=== PATIENT | male | born 1965 | race African-American/Black ===

== ENCOUNTER 2020-01-21 21:08 | Inpatient (IN) | payer MEDICARE ==
[2020-01-21] MEDS ORDERED: niCARdipine 25 MG in Sodium Chloride 0.9% 250 ML 240 ML IVPB SCH ×2 (21:45→23:03)
[2020-01-21] MEDS ORDERED: ADMIXTURE FEE IV SCH (22:00)
[2020-01-21] MEDS ORDERED: HUMAN PROTHROMBIN COMPLX IV SCH (22:00)
[2020-01-21 22:33] LABS: Troponin I 0.019 ng/mL (< 0.028)
--- NOTE | 2020-01-21 22:51 | PDOC.HHP ---
Hospitalist HPI - History of Present Illness generalized weakness History of Present Illness: This is a 54 year old male with past medical history of CVA x 3, hypertension, CHF with EF 15%, thrombosis of unclear site per patient (lung, heart or brain? ) on warfarin who presented to the ER with generalized weakness. Patient first felt weak at 4:00 pm yesterday. He states he was sitting on the couch and was getting up to perform a chore and realized he couldn't get up from the couch. He also noticed that his right arm was numb. He checked his blood pressure and it was 160/100, so he took his coreg and hydralazine and when he rechecked it, it was over 200 systolic. It continued to fluctuate throughout the night but eventually improved to 140 systolic at 5 am so he decided to go to sleep. He woke up at 4:00 pm today and was still unable to get up off the couch and his right arm was still tingling so he called the ambulance. He also noticed his legs felt extremely heavy. When the ambulance checked his blood pressure it was 200 systolic again. He took his coumadin before coming to the ER. The patient denies headache, vision changes, hearing loss, chest pain, palpitations, shortness of breath, diaphoresis, dizziness. Patient states he moved here from [place] in August and has no linoleum layer here yet. Last INR check with PCP in October was 2.1. Patient states goal INR is 2.1 to 2.5. He is supposed to get INR machine at home but insurance company hasn't sent it yet. ED Course: The patient presented to [facility] with a BP of 213/145. He was noted to have an INR of 3.4, creatinine of 1.66. CT head showed acute hemorrhage in the basal ganglia measuring 1.5 cm. He was given 10 mg subcutaneous vitamin K and transferred to the ER here. Upon arrival to the ER neurosurgery was consulted who recommended no intervention. The patient was started on a nicardipine drip with BP improved to 160 systolic. Hospitalist ROS - Review of Systems Constitutional: denies: fever, chills Eyes: denies: vision change ENT: denies: ear pain, ear discharge, mouth pain Respiratory: denies: cough, dry, shortness of breath Cardiovascular: denies: chest pain, palpitations, orthopnea Gastrointestinal: denies: nausea, vomiting, abdominal pain, diarrhea Musculoskeletal: reports: other (generalized weakness) Other: legs feel heavy. Some tingling on right - Medication Medications: Warfarin 12 mg ,, Warfarin 9 mg , , Wednesday, Wednesday Coreg 12.5 mg bid Lasix 20 mg daily Calcium Magnesium 400 mg daily Hydralazine 50 mg tid Vitamin B1 Hospitalist History - Past Medical History Cardiac: reports: CHF (EF 15-20%), HTN PRACTICE PROFESSIONAL: reports: CVA (x 3 in the past. Patient was paralyzed for two weeks in the past from stroke) Infectious Disease: reports: Other (was hospitalized for flu and pneumonia last year) Other Medical History: Patient reports being in coumadin for clot in heart, lung or brain but not sure which one CKD not sure what stage - Past Surgical History Other Surgical History: Right knee repair as a child - Family History Other Family History: Dad had a stroke Mom had a stroke and heart attack - Social History Smoking Status: Current every day smoker (has weaned down to 1/2 pack a day. Smoked for last 40 years) Alcohol: reports: Occassional (Previously heavy drinker up until a year ago) Drugs: reports: none Living Situation: Other (lives with girlfriend) Occupation: used to work as a plant security guard. Currently retired - Exam General Appearance: NAD, awake alert Eye: PERRL, anicteric sclera ENT: normocephalic atraumatic, no oropharyngeal lesions Neck: no JVD Heart: RRR, no murmur, no gallops, no rubs Respiratory: CTAB, no wheezes, no rales, no ronchi Gastrointestinal: non-tender, non-distended, normal bowel sounds Gastrointestinal - other findings: firm abdomen likely from musculature Extremities: no cyanosis, no clubbing, no edema Skin: normal turgor, no lesions Neurological: cranial nerve grossly intact, normal sensation to touch. negative : speech deficit, vision deficit Neurological - other findings: RUE pronator drift. Cannot keep right leg bent. Refl 1+ throughout. Neg Bab Musculoskeletal: normal tone, normal strength, no muscle wasting Musculoskeletal - other findings: Arm ext: LUE 4/5, RUE 5/5, Arm flexion: RUE 4 /5, LUE 5/5. Psychiatric: normal affect, normal behavior, A&O x 3, oriented to person Hospitalist Results - Labs Lab results: Troponin I 0.019 ng/mL (< 0.028) 01/21/20 21:56 - EKG Interpretation EKG: T wave inversions in V5 and V6, lead I and II, repolarization abnormality Hospitalist H&P A/P - Plan Plan: CT head: acute hemorrhage left basal ganglia measuring 1.5 cm. Severely chronic ischemic white matter change This is a 54 year old male with hypertension, systolic CHF, CKD, presenting with acute basal ganglia hemorrhage #Acute basal ganglia hemorrhage from warfarin #Hypertensive emergency - CT head shows acute hemorrhage left basal ganglia. He has right pronator drift and RLE weakness. LUE weak on extension - INR 3.4, s/p 10 mg subcutaneous vitamin K. Will order K-centra, repeat INR in 30 minutes - neurosurgery consulted - neurology consult will be placed as well - will keep SBP around 140 with nicardipine drip. Continue hydralazine 50 mg tid, coreg 12.5 mg bid. -PT/OT consult #Systolic CHF with EF 15% - pt reports not being on aspirin or plavix, denies history of stents - obtain cardiology records from [place] -he says he did not tolerate life vest in the past #CKD - unknown baseline, currently 1.6 - obtain last creatinine from PCP #Hyperglycemia - mildly elevated 108, will check A1C #Leukopenia - WBC 4.3, will monitor. No signs of infection currently GI prophylaxis: will add protonix DVT prophylaxis: none Code status: DNR/DNI
[2020-01-21 23:08] LABS: INR-International Normal Ratio 3.2; Prothrombin Time 32.6 SEC (12.0-14.7)
[2020-01-21] MEDS ORDERED: Carvedilol 6.25 MG TAB PO SCH (23:15)
[2020-01-21] MEDS ORDERED: hydrALAZINE 25 MG TAB PO SCH (23:15)
[2020-01-21] MEDS ORDERED: Acetaminophen 325 MG TAB PO PRN (23:18)
[2020-01-21] MEDS ORDERED: Ondansetron ODT 4 MG TAB SL PRN (23:18)
[2020-01-21] MEDS ORDERED: Ondansetron PF 4 MG/2 ML Vial IVP PRN (23:18)
[2020-01-21] MEDS ORDERED: Sodium Chloride 0.9% (PF) 10 ML VIAL FS PRN (23:33)
[2020-01-21] MEDS ORDERED: Pantoprazole 40 MG VIAL IVP SCH (23:45)
[2020-01-22] MEDS ORDERED: Nicotine 14 MG PATCH TD SCH (01:00)
[2020-01-22 01:17] LABS: Hemoglobin 16.6 g/dL (14.0-18.0); Mean Corpuscular HGB CONC 33.5 g/dL (32.0-36.0); Mean Corpuscular Hemoglobin 28.7 pg (27.0-31.0); Mean Corpuscular Volume 85.7 fL (78.0-98.0); Mean Platelet Volume 7.6 fL (7.4-10.4); Platelet Count 196 thou/uL (130-400); RBC Distribution Width 12.7 % (11.5-14.5); Red Blood Cell (RBC) Count 5.79 mill/uL (4.70-6.10); White Blood Cell (WBC) Count 6.2 thou/uL (4.8-10.8)
[2020-01-22 01:35] LABS: Troponin I 0.019 ng/mL (< 0.028)
[2020-01-22 01:42] LABS: Anion Gap 14 mmol/L (10-20); BUN (Urea Nitrogen) 14 mg/dL (8.4-25.7); Calc. Creatinine Clearance 0 mL/min (70-130); Calcium 9.1 mg/dL (7.8-10.44); Carbon Dioxide 21 mmol/L (22-29); Chloride 106 mmol/L (98-107); Estimated GFR-MDRD 55; Glucose 135 mg/dL (70-105); Potassium 3.4 mmol/L (3.5-5.1); Sodium 138 mmol/L (136-145)
[2020-01-22] MEDS: Thiamine 100 MG TAB PO SCH (08:00)
[2020-01-22] MEDS: hydrALAZINE 25 MG TAB PO SCH ×3 (08:00→21:17)
[2020-01-22] MEDS: Carvedilol 6.25 MG TAB PO SCH ×2 (08:01→16:11)
--- NOTE | 2020-01-22 08:58 | CON ---
DATE OF CONSULTATION: 01/22/2020 REASON FOR CONSULTATION: Intracranial bleed. HISTORY OF PRESENT ILLNESS: This is a 54-year-old male, who presented to the hospital last night, unsteady on his feet. He was found to have a left small basal ganglia hemorrhage measuring about 1.5 cm. At the current time, he does not have much in the way of deficits. He is currently on a nicardipine drip for blood pressure [id number]. Should be noted that he was on warfarin prior to this admission. I am not completely sure why he had been on warfarin. He has just moved his care here from [place]. PAST MEDICAL HISTORY: 1. Cardiomyopathy with EF 15% to 20%. 2. Hypertension. 3. Stroke. 4. Pneumonia. PAST SURGICAL HISTORY: Right knee repair. MEDICATIONS: Prior to admission: 1. Warfarin 12 mg every Wednesday, Wednesday, Wednesday and 9 mg every Wednesday, , Wednesday, and Wednesday. 2. Coreg 12.5 mg b.i.d. 3. Lasix 20 mg daily. 4. Calcium. 5. Magnesium 4 mg daily. 6. Hydralazine 50 mg b.i.d. 7. Vitamin B1. FAMILY MEDICAL HISTORY: Stroke. SOCIAL HISTORY: Smokes half pack per day and does so for 40 years. Does not currently drink alcohol, but previously did in the past. Does not use illicit drugs. REVIEW OF SYSTEMS: Twelve-point review of systems is otherwise negative. PHYSICAL EXAMINATION: VITAL SIGNS: Temperature 98.4, pulse 80, blood pressure 150/95, and O2 saturation 100%. HEENT: Pupils react. Sclerae are anicteric. Oropharynx clear. Tongue protrudes midline. NECK: No adenopathy, JVD, or bruits. LUNGS: Clear without wheezing or rhonchi. CARDIAC: S1 and S2. Regular without audible murmur, rub, or gallop. ABDOMEN: Soft and nontender to palpation. EXTREMITIES: No clubbing, cyanosis, or edema. NEUROLOGIC: Muscle strength 5/5 throughout with the exception of the extensor muscle in the left hip, which is 4/5. He has sensation fully intact throughout. Deep tendon reflexes intact throughout. Chest x-ray shows some cardiomegaly without mass, effusion, or infiltrate. LABORATORY DATA: White blood cell count 6.2, hematocrit 49.6, and platelet count 196. INR was 3.2. Sodium 138, potassium 3.4, chloride 106, CO2 of 21, BUN 14, creatinine 1.5, and glucose 135. ASSESSMENT: 1. Basal ganglia bleed. 2. Malignant hypertension. 3. Cardiomyopathy. PLAN: 1. The patient was given Kcentra in the emergency room to reverse his warfarin. 2. Blood pressure well controlled with the Cardene drip. 3. Neurosurgical evaluation. I would assume there will probably not need to intervene unless the hemorrhage increases in size. We will follow with you. Job ID: [id number]
[2020-01-22] MEDS ORDERED: Pantoprazole 40 MG VIAL IVP SCH (09:00)
[2020-01-22] MEDS ORDERED: Prevnar 13-Val Conj/PF 0.5 ML SYRINGE IM ONE (09:00)
--- NOTE | 2020-01-22 09:21 | RAD ---
PORTABLE CHEST 1 VIEW: Date: 01/21/2020 HISTORY: Generalized weakness, right arm numbness. FINDINGS: The heart size is normal. The lungs are well expanded without lobar consolidation, pneumothoraces, or pleural effusions. IMPRESSION: No acute process. POS: [facility]
--- NOTE | 2020-01-22 10:44 | CON ---
DATE OF CONSULTATION: 01/22/2020 Mr. Solis is a 54-year-old man, admitted to [facility] after suffering a left-sided basal ganglia hemorrhage measuring roughly 1 cm in size with surrounding rim of hypointensity, likely related to early signs of edema from the blood products that had been present for over 4 hours. At bedside, the patient states that his symptoms onset around 48 hours ago, but one of the way today before being evaluated to see if they would resolve as he has history of TIA. He also has history positive for CVA x3 and was started on warfarin therapy for this, which he is continued to be on. His INR upon presentation was 3.4. He states that he has no home way of checking his INR on a weekly basis like it should be and unable to check this level since October when he moved to [place] from [place]. Reportedly, he states his primary care physician has arranged for him to have a home point of care testing unit and be able to check his warfarin levels on his own, but it is unfortunately not yet arrived. He also has history positive for hypertension and takes medications daily for that. However, upon presentation, he was quite hypertensive at that time. This is better controlled today with pressures in the 130s to 150s, although they continue to rise up to 170s and 180s. He is on a Cardene drip for this purpose, but not on any other p.r.n. medications and is in the ICU for that reason. Neurologically, he looks fantastic. He has no cognitive deficiencies. Speech is fluid and uninhibited. He does have some mild right lower extremity weakness, which is new, likely related to these areas of hemorrhage. Otherwise, I think he is quite well overall. Recommendation for his hemorrhage is that of nonsurgical management. This will just need a repeat CT scan today at some point to ensure the hemorrhage is not enlarging or changing morphologically. If stable, the patient can be discharged from Neurosurgery's perspective at this point in time. Plan to follow up with him in say 2 to 3 weeks with repeat head CT in [place] since he is on warfarin. We will hold that for the time being and if things look to be well in the next couple of weeks, we can start a plan to restart that. Job ID: [id number]
[2020-01-22] MEDS ORDERED: Labetalol HCl 100 MG/20 ML VIAL ONE ×2 (10:51→10:52)
[2020-01-22] MEDS: Labetalol HCl 100 MG/20 ML VIAL SLOW IVP PRN (12:15)
--- NOTE | 2020-01-22 12:46 | PDOC.HOSPP ---
- Subjective Encounter Date: 01/22/20 Encounter Time: 11:45 Subjective: awake, moves all extremities but weaker on right side says he is amphidextrous - Objective Vital Signs & Weight: Vital Signs (12 hours) Temp Pulse BP Pulse Ox 01/22/20 12:16 179/115 H 01/22/20 12:15 78 179/115 H 01/22/20 11:00 97.8 F 01/22/20 08:01 179/115 H 01/22/20 08:00 179/115 H 100 01/22/20 07:00 98.4 F 01/22/20 04:00 98.1 F Weight Weight 180 lb 12.8 oz Most Recent Monitor Data Heart Rate from ECG 70 NIBP 145/107 NIBP BP-Mean 119 Respiration from ECG 20 SpO2 98 I&O: 01/21/20 01/22/20 01/23/20 06:59 06:59 06:59 Intake Total 716 500 Output Total 250 600 Balance 466 -100 Result Diagrams: 01/22/20 01:02 01/22/20 01:02 Hospitalist ROS - Medication Medications: Active Medications Generic Name Dose Route Start Last Admin Trade Name Freq PRN Reason Stop Dose Admin Carvedilol 12.5 mg 01/22/20 08:00 01/22/20 08:01 Coreg PO 12.5 mg BID-WM STU Administration Hydralazine HCl 50 mg 01/22/20 09:00 01/22/20 08:00 Apresoline PO 50 mg TID STU Administration Labetalol HCl 10 mg 01/22/20 10:52 01/22/20 12:15 Normodyne SLOW IVP 10 mg Q4H PRN Administration SBP GREATER THAN 160 Nicotine 14 mg 01/22/20 01:00 01/22/20 00:41 Nicoderm Patch TD 14 mg 0100 STU Administration Pantoprazole Sodium 40 mg 01/22/20 09:00 01/22/20 08:22 Protonix IVP 40 mg Q12HR STU Administration Sodium Chloride 10 ml 01/21/20 23:33 01/21/20 23:57 Normal Saline Pf FS 10 ml PRN PRN Administration RECONSTITUTION Thiamine HCl 100 mg 01/22/20 09:00 01/22/20 08:00 Thiamine PO 100 mg DAILY STU Administration - Exam General Appearance: awake alert Eye: PERRL, anicteric sclera ENT: no oropharyngeal lesions, moist mucosa Neck: supple, no JVD Heart: RRR, no murmur Respiratory: no wheezes, no rales Gastrointestinal: soft, non-tender, non-distended, normal bowel sounds Extremities: no cyanosis, no edema Neurological: hemiplegia Psychiatric: A&O x 3 Hosp A/P (1) Intracerebral bleed Code(s): I61.9 - NONTRAUMATIC INTRACEREBRAL HEMORRHAGE, UNSPECIFIED Status: Acute Qualifiers: Intracerebral hemorrhage etiology: nontraumatic Cerebral hemorrhage location: cerebral hemisphere, subcortical portion Laterality: left Qualified Code(s): I61.0 - Nontraumatic intracerebral hemorrhage in hemisphere, subcortical (2) Hypertensive emergency Code(s): I16.1 - HYPERTENSIVE EMERGENCY Status: Resolved (3) H/O: CVA (cerebrovascular accident) Code(s): Z86.73 - PRSNL HX OF TIA (TIA), AND CEREB INFRC W/O RESID DEFICITS Status: Chronic (4) CHF (congestive heart failure) Code(s): I50.9 - HEART FAILURE, UNSPECIFIED Status: Chronic Qualifiers: Heart failure type: systolic Heart failure chronicity: chronic Qualified Code(s): I50.22 - Chronic systolic (congestive) heart failure (5) Dyslipidemia Code(s): E78.5 - HYPERLIPIDEMIA, UNSPECIFIED Status: Chronic - Plan hypertensive emergency has resolved has right hemiparesis with strength of around 3/5 in both upper and lower h/o cva 7yrs back with left hemiplegia and no residual now has known h/o chf with ef of 15%, also is on coumadin for ?thrombus await records from [facility]/PCP current echo, february tx to stroke unit PT/OT eval dc cardene drip he got vit k 10mg and kcentra to reverse coumadin in view of presenting symptoms hemo/neurostable will need rehab for dc plan continue coreg, hydralazine, lipitor
--- NOTE | 2020-01-22 13:06 | CT ---
BRAIN CT WITHOUT IV CONTRAST: Date: 01/22/2020 HISTORY: Coordination issues, follow-up intracranial hemorrhage. Patient on warfarin COMPARISON: 01/21/2020. FINDINGS: Stable intraparenchymal hemorrhage in the left basal ganglia. Bilateral atrophy and chronic white mat ter ischemic changes, including the periventricular regions bilaterally. No mass or midline shift. No new hemorrhage. IMPRESSION: Stable left basal ganglia intraparenchymal hemorrhage with atrophy and chronic white matter ischemic change. No new hemorrhage. POS: [facility]
[2020-01-22] MEDS: Nicotine 14 MG PATCH TD SCH (21:17)
[2020-01-22] MEDS: Atorvastatin Calcium 40 MG TAB PO SCH (21:17)
[2020-01-23] MEDS: Acetaminophen 325 MG TAB PO PRN (04:03)
[2020-01-23] MEDS: Labetalol HCl 100 MG/20 ML VIAL SLOW IVP PRN ×4 (04:21→22:28)
[2020-01-23 05:14] LABS: #Basophils 0.1 thou/uL (0.0-0.2); #Eosinphils 0.1 thou/uL (0.0-0.7); #Lymphocytes 2.5 thou/uL (1.20-3.40); #Monocytes 0.5 thou/uL (0.11-0.59); #Neutrophils 3.1 thou/uL (1.40-6.50); %Basophils 1.1 % (0.0-1.0); %Eosinophils 1.5 % (0.0-10.0); %Lymphocytes 39.9 % (21.0-51.0); %Neutrophils 49.6 % (42.0-75.0); Hemoglobin 15.4 g/dL (14.0-18.0); Mean Corpuscular HGB CONC 33.3 g/dL (32.0-36.0); Mean Corpuscular Hemoglobin 28.5 pg (27.0-31.0); Mean Corpuscular Volume 85.8 fL (78.0-98.0); Mean Platelet Volume 7.9 fL (7.4-10.4); Platelet Count 201 thou/uL (130-400); RBC Distribution Width 12.7 % (11.5-14.5); Red Blood Cell (RBC) Count 5.41 mill/uL (4.70-6.10); White Blood Cell (WBC) Count 6.3 thou/uL (4.8-10.8)
[2020-01-23 05:22] LABS: INR-International Normal Ratio 1.2; PTT 31.5 SEC (22.9-36.1)
[2020-01-23 05:34] LABS: Anion Gap 11 mmol/L (10-20); BUN (Urea Nitrogen) 16 mg/dL (8.4-25.7); Calc. Creatinine Clearance 61 mL/min (70-130); Calcium 8.8 mg/dL (7.8-10.44); Carbon Dioxide 25 mmol/L (22-29); Chloride 107 mmol/L (98-107); Estimated GFR-MDRD 56; Glucose 92 mg/dL (70-105); Potassium 3.8 mmol/L (3.5-5.1); Sodium 139 mmol/L (136-145)
[2020-01-23 05:39] VITALS: BMI 30.1
[2020-01-23] MEDS: Carvedilol 6.25 MG TAB PO SCH (08:23)
[2020-01-23] MEDS: hydrALAZINE 25 MG TAB PO SCH ×3 (08:24→20:55)
[2020-01-23] MEDS: Thiamine 100 MG TAB PO SCH (08:25)
--- NOTE | 2020-01-23 10:12 | PDOC.HOSPP ---
- Subjective Encounter Date: 01/23/20 Encounter Time: 09:20 Subjective: feels better, is moving his right UE better this am no headache or blurry vision - Objective Vital Signs & Weight: Vital Signs (12 hours) Temp Pulse Resp BP BP BP Pulse Ox 01/23/20 09:57 70 162/94 H 01/23/20 08:24 70 172/102 H 01/23/20 08:23 172/102 H 01/23/20 07:44 97.4 F L 70 20 172/102 H 99 01/23/20 06:11 172/102 H 01/23/20 04:21 70 01/23/20 04:00 97.6 F 70 18 181/112 H 99 01/23/20 00:00 98.1 F 70 18 132/77 97 Weight Weight 186 lb 11.704 oz Most Recent Monitor Data Heart Rate from ECG 67 NIBP 175/101 NIBP BP-Mean 125 Respiration from ECG 14 SpO2 97 I&O: 01/22/20 01/23/20 01/24/20 06:59 06:59 06:59 Intake Total 716 500 Output Total 250 850 100 Balance 466 -350 -100 Result Diagrams: 01/23/20 04:40 01/23/20 04:40 Hospitalist ROS - Medication Medications: Active Medications Generic Name Dose Route Start Last Admin Trade Name Freq PRN Reason Stop Dose Admin Acetaminophen 650 mg 01/23/20 03:59 01/23/20 04:03 Tylenol PO 650 mg Q4H PRN Administration Headache/Fever or Pain Atorvastatin Calcium 40 mg 01/22/20 21:00 01/22/20 21:17 Lipitor PO 40 mg HS STU Administration Carvedilol 12.5 mg 01/22/20 08:00 01/23/20 08:23 Coreg PO 12.5 mg BID-WM STU Administration Hydralazine HCl 50 mg 01/22/20 09:00 01/23/20 08:24 Apresoline PO 50 mg TID STU Administration Labetalol HCl 10 mg 01/22/20 10:52 01/23/20 09:57 Normodyne SLOW IVP 10 mg Q4H PRN Administration SBP GREATER THAN 160 Nicotine 14 mg 01/22/20 21:00 01/22/20 21:17 Nicoderm Patch TD 14 mg 2100 STU Administration Pantoprazole Sodium 40 mg 01/23/20 09:00 01/23/20 08:25 Protonix PO 40 mg DAILY STU Administration Sodium Chloride 10 ml 01/21/20 23:33 01/21/20 23:57 Normal Saline Pf FS 10 ml PRN PRN Administration RECONSTITUTION Thiamine HCl 100 mg 01/22/20 09:00 01/23/20 08:25 Thiamine PO 100 mg DAILY STU Administration - Exam General Appearance: awake alert Eye: PERRL, anicteric sclera ENT: no oropharyngeal lesions, moist mucosa Neck: supple, no JVD Heart: RRR, no murmur Respiratory: no wheezes, no rales Gastrointestinal: soft, non-tender, non-distended, normal bowel sounds Extremities: no cyanosis, no edema Neurological: hemiplegia Psychiatric: normal affect, A&O x 3 Hosp A/P (1) Intracerebral bleed Code(s): I61.9 - NONTRAUMATIC INTRACEREBRAL HEMORRHAGE, UNSPECIFIED Status: Acute Qualifiers: Intracerebral hemorrhage etiology: nontraumatic Cerebral hemorrhage location: cerebral hemisphere, subcortical portion Laterality: left Qualified Code(s): I61.0 - Nontraumatic intracerebral hemorrhage in hemisphere, subcortical (2) Hypertensive emergency Code(s): I16.1 - HYPERTENSIVE EMERGENCY Status: Resolved (3) H/O: CVA (cerebrovascular accident) Code(s): Z86.73 - PRSNL HX OF TIA (TIA), AND CEREB INFRC W/O RESID DEFICITS Status: Chronic (4) CHF (congestive heart failure) Code(s): I50.9 - HEART FAILURE, UNSPECIFIED Status: Chronic Qualifiers: Heart failure type: systolic Heart failure chronicity: chronic Qualified Code(s): I50.22 - Chronic systolic (congestive) heart failure (5) Dyslipidemia Code(s): E78.5 - HYPERLIPIDEMIA, UNSPECIFIED Status: Chronic (6) h/o LV thrombus Status: Chronic (7) Afib Code(s): I48.91 - UNSPECIFIED ATRIAL FIBRILLATION Status: Chronic Qualifiers: Atrial fibrillation type: paroxysmal Qualified Code(s): I48.0 - Paroxysmal atrial fibrillation (8) Cardiomyopathy Code(s): I42.9 - CARDIOMYOPATHY, UNSPECIFIED Status: Acute Qualifiers: Cardiomyopathy type: dilated Qualified Code(s): I42.0 - Dilated cardiomyopathy - Plan hypertensive emergency has resolved has right hemiparesis with strength of around 4/5 in upper and 3/5 in lower h/o cva 7yrs back with left hemiplegia and no residual now has known h/o chf with ef of 15%, also is on coumadin for ?LV thrombus in 2018 per records from [facility], repeat echo in 01/2019 did not reveal thrombus prior ekg's from above facility shows afib, currently in sinus rhythm echo, cardiology consultation PT/OT eval he got vit k 10mg and kcentra to reverse coumadin in view of presenting symptoms on admission hemo/neurostable will need rehab for dc plan continue coreg, hydralazine, lipitor no anticoagulation due to current bleed in basal ganglia on left side
[2020-01-23] MEDS ORDERED: hydrALAZINE 25 MG TAB PO SCH (15:45)
[2020-01-23] MEDS ORDERED: Spironolactone 25 MG TAB PO SCH (15:45)
[2020-01-23] MEDS: Carvedilol 25 MG TAB PO SCH (16:01)
[2020-01-23] MEDS: Atorvastatin Calcium 40 MG TAB PO SCH (20:55)
[2020-01-23] MEDS: Nicotine 14 MG PATCH TD SCH (20:57)
--- NOTE | 2020-01-23 23:15 | CON ---
DATE OF CONSULTATION: 01/23/2020 REASON FOR CONSULTATION: History of LV dysfunction and LV thrombus. HISTORY OF PRESENT ILLNESS: Mr. Solis is a very pleasant 54-year-old gentleman who comes to the hospital for unsteadiness on his feet. He was found to have an intracranial bleed. He is on chronic Coumadin for what appears to be history of an LV thrombus, and he has nonischemic cardiomyopathy. He came in, his blood pressure was very high. Hemorrhage was in the basal ganglia 1.5 cm. He had his warfarin reversed, and his last INR was 1.2 from 3.4 on admission. His blood pressure was extremely high started on nicardipine drip and eventually, controlled and taken out of the ICU back to the floor in a stable condition. Cardiology is being consulted as the records finally arrived from [place], but he was treated about 2 years ago, and we need guidance as far as what to go with his warfarin. Reviewing his records, he was admitted in 2018 for what appears to be nonischemic cardiomyopathy. His EF was about 10% at that time and he had an LV thrombus. He was started on warfarin and a medical therapy and about 3 months later, he was readmitted to the hospital, and his EF at that time was better at 20% to 25%, LV thrombus was not mentioned on the echo. There was no denying presence of a thrombus, but there was no admission of it. There was thought that they might be noncompaction at the apex of the heart. However, thrombus was not mentioned. Because his EF remained reduced at 20% to 25%; at that time, warfarin was continued for risk of developing more thrombus. He has not followed up with any ophthalmic technician or anyone since then. He his since and has moved to the [place] area in August of last year. PAST MEDICAL HISTORY: 1. Nonischemic cardiomyopathy, last EF at 20% to 25% on echo in September of 2018. 2. Hypertension. 3. History of stroke. 4. History of pneumonia. 5. History of LV thrombus. PAST SURGICAL HISTORY: Right knee repair. OUTPATIENT MEDICATIONS: 1. Warfarin. 2. Coreg 12.5 b.i.d. 3. Lasix 20 mg a day. 4. Calcium. 5. Magnesium. 6. Hydralazine 50 mg b.i.d. 7. Vitamin B1. FAMILY HISTORY: Noncontributory except for stroke. SOCIAL HISTORY: Smokes half a pack a day for last 40 years. No alcohol. Was heavy drinker in the past. He quit 2 years ago when he was diagnosed with a weak heart. No drug use. REVIEW OF SYSTEMS: A 12-point review of systems was done and was all negative unless stated in the History of Present Illness. PHYSICAL EXAMINATION: VITAL SIGNS: Temperature 97.7, pulse 65, respiratory rate 16, saturating 97% on room air, blood pressure last one was 185/113, but has been anywhere from 152/96 to 195/119. GENERAL: Awake, alert, and oriented x3. No distress. HEENT: Normocephalic, atraumatic. NECK: Supple. LUNGS: Clear. CARDIOVASCULAR: S1, S2. No S3 or S4. No murmurs. ABDOMEN: Soft. Positive bowel sounds. EXTREMITIES: No edema. SKIN: Warm and dry. LABORATORY WORK: Reviewed. CBC with a white count of 6, hemoglobin of 16, hematocrit 49, and platelet count of 196. Coags with an INR of 3.2 on admission, 1.2 since once it was reversed. Chemistry; troponin was negative x2, potassium has been replaced, creatinine 1.58, GFR 56. Echocardiogram was reviewed earlier today. EF is much better at 55% to 60%, grade 1 to 3 diastolic dysfunction. Mild LVH. No LV thrombus was seen. ASSESSMENT: 1. Intracranial hemorrhage. 2. Chronic anticoagulation, secondary to what sounds to be history of left ventricular thrombus. 3. Severe nonischemic cardiomyopathy with normalized ejection fraction now. 4. Uncontrolled malignant hypertension. PLAN: 1. He no longer has indication for full anticoagulation warfarin. We will recommend stopping this indefinitely for now. I reviewed his records from [place] extensively and the reason for his Coumadin was LV thrombus and reduced LV function, which is no longer the case. He now has normal LV systolic function and no evidence of LV thrombus. No history of atrial fibrillation or atrial flutter by reviewing records nor that he remembers being told he had. I would recommend a baby aspirin, once safe from the Neurosurgical perspective, it may not be about a month or two out of this admission. 2. Blood pressure is very difficult to control. We will maximize the carvedilol to 25 twice a day and will maximize hydralazine to 100 three times a day. We will also add Aldactone to his regimen that started tomorrow as his creatinine is no longer an issue at 1.5, we will give first dose now. 3. We will add isosorbide mononitrate which he was on before at 30 mg daily. Thank you for letting us to participate in the care of your patient. We will follow. Job ID: [id number]
[2020-01-24] MEDS: Labetalol HCl 100 MG/20 ML VIAL SLOW IVP PRN (01:38)
[2020-01-24] MEDS: Acetaminophen 325 MG TAB PO PRN ×2 (02:07→08:45)
[2020-01-24] MEDS ORDERED: cloNIDine 0.1 MG TAB PO SCH (03:15)
[2020-01-24 07:26] LABS: #Basophils 0.1 thou/uL (0.0-0.2); #Eosinphils 0.1 thou/uL (0.0-0.7); #Lymphocytes 2.4 thou/uL (1.20-3.40); #Monocytes 0.5 thou/uL (0.11-0.59); #Neutrophils 2.9 thou/uL (1.40-6.50); %Basophils 1.4 % (0.0-1.0); %Eosinophils 1.1 % (0.0-10.0); %Lymphocytes 40.9 % (21.0-51.0); %Monocytes 7.7 % (0.0-10.0); %Neutrophils 48.9 % (42.0-75.0); Hemoglobin 15.1 g/dL (14.0-18.0); Mean Corpuscular HGB CONC 32.7 g/dL (32.0-36.0); Mean Corpuscular Hemoglobin 28.3 pg (27.0-31.0); Mean Corpuscular Volume 86.5 fL (78.0-98.0); Mean Platelet Volume 7.8 fL (7.4-10.4); Platelet Count 180 thou/uL (130-400); RBC Distribution Width 12.5 % (11.5-14.5); Red Blood Cell (RBC) Count 5.35 mill/uL (4.70-6.10)
[2020-01-24 07:45] LABS: Anion Gap 12 mmol/L (10-20); BUN (Urea Nitrogen) 16 mg/dL (8.4-25.7); Calc. Creatinine Clearance 69 mL/min (70-130); Calcium 8.9 mg/dL (7.8-10.44); Carbon Dioxide 23 mmol/L (22-29); Chloride 107 mmol/L (98-107); Estimated GFR-MDRD 63; Glucose 88 mg/dL (70-105); Potassium 3.8 mmol/L (3.5-5.1); Sodium 138 mmol/L (136-145)
[2020-01-24] MEDS ORDERED: THIAMINE HCL PO SCH (09:00)
[2020-01-24] MEDS ORDERED: Isosorbide Mononitrate (ER) 30 MG TAB PO SCH (09:00)
[2020-01-24] MEDS: Thiamine 100 MG TAB PO SCH (09:02)
[2020-01-24] MEDS: Carvedilol 25 MG TAB PO SCH ×2 (09:03→16:37)
[2020-01-24] MEDS: Spironolactone 25 MG TAB PO SCH (09:03)
[2020-01-24] MEDS: NIFEdipine XL 60 MG TAB PO SCH (09:04)
[2020-01-24] MEDS: hydrALAZINE 25 MG TAB PO SCH ×3 (09:04→21:27)
[2020-01-24] MEDS: Hydrochlorothiazide 25 MG TAB PO SCH (09:04)
[2020-01-24 09:39] LABS: Amphetamine Not Detected (NotDetected); Barbiturates Screen Not Detected (NotDetected); Benzodiazepine Screen Not Detected (NotDetected); Cocaine Metabolite Screen Not Detected (NotDetected); Medtox Control Line Valid? VALID (VALID); Medtox Reader # READER 1; Methadone Not Detected (NotDetected); Methamphetamine Not Detected (NotDetected); Opiate Screen Not Detected (NotDetected); Oxycodone Screen Not Detected (NotDetected); Phencyclidine (PCP) Not Detected (NotDetected); THC/Cannabinoid Screen Not Detected (NotDetected); Tricyclic Screen Not Detected (NotDetected)
--- NOTE | 2020-01-24 12:39 | PDOC.CPN ---
- Subjective Date: 01/24/20 Time: 12:31 Interval history: No new issues. - Review of Systems General: denies: fever/chills, weight/appetite/sleep changes, night sweats, fatigue Respiratory: denies: cough, congestion, shortness of breath, exercise intolerance Cardiovascular: denies: chest pain, palpitation, edema, paroxysmal nocturnal dyspnea, orthopnea Gastrointestinal: denies: nausea, vomiting, diarrhea, constipation, abd pain, GI bleeding Musculoskeletal: denies: pain, tenderness, stiffness, swelling, arthritis/ arthralgias Neurological: reports: weakness. denies: numbness, syncope, seizure - Objective Allergies/Adverse Reactions: Allergies Allergy/AdvReac Type Severity Reaction Status Date / Time Penicillins Allergy Intermediate Rash Verified 01/21/20 23:35 Visit Medications: Current Medications Acetaminophen (Tylenol) 650 mg PO Q4H PRN PRN Reason: Headache/Fever or Pain Last Admin: 01/24/20 08:45 Dose: 650 mg Atorvastatin Calcium (Lipitor) 40 mg PO HS [facility] Last Admin: 01/23/20 20:55 Dose: 40 mg Carvedilol (Coreg) 25 mg PO BID-[facility] Last Admin: 01/24/20 09:03 Dose: 25 mg Hydralazine HCl (Apresoline) 100 mg PO TID [facility] Last Admin: 01/24/20 09:04 Dose: 100 mg Hydrochlorothiazide (Hydrochlorothiazide) 25 mg PO DAILY [facility] Last Admin: 01/24/20 09:04 Dose: 25 mg Labetalol HCl (Normodyne) 10 mg SLOW IVP Q4H PRN PRN Reason: SBP GREATER THAN 160 Last Admin: 01/24/20 01:38 Dose: 10 mg Nicotine (Nicoderm Patch) 14 mg TD 2100 [facility] Last Admin: 01/23/20 20:57 Dose: 14 mg Nifedipine (Procardia Xl) 60 mg PO DAILY [facility] Last Admin: 01/24/20 09:04 Dose: 60 mg Pantoprazole Sodium (Protonix) 40 mg PO DAILY [facility] Last Admin: 01/24/20 09:03 Dose: 40 mg Sodium Chloride (Normal Saline Pf) 10 ml FS PRN PRN PRN Reason: RECONSTITUTION Last Admin: 01/21/20 23:57 Dose: 10 ml Spironolactone (Aldactone) 12.5 mg PO QAM-[facility] Last Admin: 01/24/20 09:03 Dose: 12.5 mg Thiamine HCl (Thiamine) 150 mg PO DAILY [facility] Last Admin: 01/24/20 09:02 Dose: 150 mg Vital Signs & Weight: Vital Signs Temp Pulse Resp BP BP BP Pulse Ox 01/24/20 10:20 158/95 H 01/24/20 09:04 71 190/123 H 01/24/20 07:38 97.5 F L 71 14 156/101 H 98 01/24/20 06:31 185/113 H 01/24/20 06:26 98.7 F 72 16 207/129 H 97 01/24/20 02:53 227/122 H 01/24/20 01:38 71 239/140 H Weight 184 lb 8.43 oz - Physical Exam General: alert & oriented x3 HEENT: mucus membranes moist Neck: supple neck Cardiac: regular rate and rhythm Lungs: clear to auscultation Neuro: weakness Abdomen: active bowel sounds Extremities: no edema Skin: clear Musculoskeletal: no pain - Labs Result Diagrams: 01/24/20 06:59 01/24/20 06:59 Troponin/CKMB Troponin I 0.019 ng/mL (< 0.028) 01/22/20 01:02 - Telemetry Sinus rhythms and dysrhythmias: sinus rhythm - Assessment/Plan Assessment/Plan: 1. Hemorrhagic CVA 2. Uncontrolled HTN 3. HTN emergency 4. Non ischemic CM resolved EF at 55-60% 5. Chronic warfarin use due to Hx of LV thrombus. Resolved on echo yesterday. 6. Possible non compaction PLAN: - No longer an indication for warfarin as he no longer has an LV thrombus and LV function is normal. - May need a cardiac MRI as an outpatient to evaluate for non compaction. - BP much better controlled with current regimen. - May transfer to rehab at any time from cardiac perspective.
--- NOTE | 2020-01-24 15:15 | PDOC.HOSPP ---
- Subjective Encounter Date: 01/24/20 Encounter Time: 11:15 Subjective: no new weakness moves his right side well this am BP is very labile - Objective Vital Signs & Weight: Vital Signs (12 hours) Temp Pulse Resp BP BP BP Pulse Ox 01/24/20 12:14 97.5 F L 68 18 123/79 98 01/24/20 10:20 158/95 H 01/24/20 09:04 71 190/123 H 01/24/20 07:38 97.5 F L 71 14 156/101 H 98 01/24/20 06:31 185/113 H 01/24/20 06:26 98.7 F 72 16 207/129 H 97 Weight Weight 184 lb 8.43 oz Most Recent Monitor Data Heart Rate from ECG 67 NIBP 175/101 NIBP BP-Mean 125 Respiration from ECG 14 SpO2 97 I&O: 01/23/20 01/24/20 01/25/20 06:59 06:59 06:59 Intake Total 500 1440 Output Total 850 1925 Balance -350 -485 Result Diagrams: 01/24/20 06:59 01/24/20 06:59 Hospitalist ROS - Medication Medications: Active Medications Generic Name Dose Route Start Last Admin Trade Name Freq PRN Reason Stop Dose Admin Acetaminophen 650 mg 01/23/20 03:59 01/24/20 08:45 Tylenol PO 650 mg Q4H PRN Administration Headache/Fever or Pain Atorvastatin Calcium 40 mg 01/22/20 21:00 01/23/20 20:55 Lipitor PO 40 mg HS STU Administration Carvedilol 25 mg 01/23/20 17:00 01/24/20 09:03 Coreg PO 25 mg BID-WM STU Administration Hydralazine HCl 100 mg 01/23/20 21:00 01/24/20 09:04 Apresoline PO 100 mg TID STU Administration Hydrochlorothiazide 25 mg 01/24/20 09:00 01/24/20 09:04 Hydrochlorothiazide PO 25 mg DAILY STU Administration Labetalol HCl 10 mg 01/22/20 10:52 01/24/20 01:38 Normodyne SLOW IVP 10 mg Q4H PRN Administration SBP GREATER THAN 160 Nicotine 14 mg 01/22/20 21:00 01/23/20 20:57 Nicoderm Patch TD 14 mg 2100 [facility]U Administration Nifedipine 60 mg 01/24/20 09:00 01/24/20 09:04 Procardia Xl PO 60 mg DAILY STU Administration Pantoprazole Sodium 40 mg 01/23/20 09:00 01/24/20 09:03 Protonix PO 40 mg DAILY STU Administration Sodium Chloride 10 ml 01/21/20 23:33 01/21/20 23:57 Normal Saline Pf FS 10 ml PRN PRN Administration RECONSTITUTION Spironolactone 12.5 mg 01/24/20 08:00 01/24/20 09:03 Aldactone PO 12.5 mg QAM-WM STU Administration Thiamine HCl 150 mg 01/24/20 09:00 01/24/20 09:02 Thiamine PO 150 mg DAILY STU Administration - Exam General Appearance: awake alert Eye: PERRL, anicteric sclera ENT: no oropharyngeal lesions, moist mucosa Neck: supple, no JVD Heart: RRR, no murmur Respiratory: no wheezes, no rales Gastrointestinal: soft, non-tender, non-distended, normal bowel sounds Extremities: no cyanosis, no edema Neurological: cranial nerve grossly intact, no focal deficits Psychiatric: normal affect, A&O x 3 Hosp A/P (1) Intracerebral bleed Code(s): I61.9 - NONTRAUMATIC INTRACEREBRAL HEMORRHAGE, UNSPECIFIED Status: Acute Qualifiers: Intracerebral hemorrhage etiology: nontraumatic Cerebral hemorrhage location: cerebral hemisphere, subcortical portion Laterality: left Qualified Code(s): I61.0 - Nontraumatic intracerebral hemorrhage in hemisphere, subcortical (2) Hypertensive emergency Code(s): I16.1 - HYPERTENSIVE EMERGENCY Status: Resolved (3) H/O: CVA (cerebrovascular accident) Code(s): Z86.73 - PRSNL HX OF TIA (TIA), AND CEREB INFRC W/O RESID DEFICITS Status: Chronic (4) CHF (congestive heart failure) Code(s): I50.9 - HEART FAILURE, UNSPECIFIED Status: Resolved Qualifiers: Heart failure type: systolic Heart failure chronicity: chronic Qualified Code(s): I50.22 - Chronic systolic (congestive) heart failure (5) Dyslipidemia Code(s): E78.5 - HYPERLIPIDEMIA, UNSPECIFIED Status: Chronic (6) h/o LV thrombus Status: Resolved (7) Afib Code(s): I48.91 - UNSPECIFIED ATRIAL FIBRILLATION Status: Suspected Qualifiers: Atrial fibrillation type: paroxysmal Qualified Code(s): I48.0 - Paroxysmal atrial fibrillation (8) Cardiomyopathy Code(s): I42.9 - CARDIOMYOPATHY, UNSPECIFIED Status: Suspected Qualifiers: Cardiomyopathy type: dilated Qualified Code(s): I42.0 - Dilated cardiomyopathy - Plan hypertensive emergency has resolved, but BP is very labile, add procardia xl, hctz to current regimen. has right hemiparesis with strength of around 4/5 in upper and 3/5 in lower h/o cva 7yrs back with left hemiplegia and no residual now has known h/o chf with ef of 15%, also is on coumadin for ?LV thrombus in 2018 per records from [facility], repeat echo in 01/2019 did not reveal thrombus prior ekg's from above facility shows afib, currently in sinus rhythm echo now shows normal ef with no LV thrombus. PT/OT eval he got vit k 10mg and kcentra to reverse coumadin in view of presenting symptoms on admission hemo/neurostable dc plan in am, need to see if his BP holds up well with current regimen in view of hemorrhagic cva continue coreg, hydralazine, lipitor no anticoagulation needed due to pt being in sinus rhythm and current echo shows no lv thrombus with normal ef. await HIV and hep panel, UDS is -ve
[2020-01-24 15:17] LABS: HBCM Index 0.05 S/CO (0-0.79); HBSAg Index 0.16 S/CO (0-0.99); HIV (1/2) Antibody/Antigen Non-Reactive (NonReactive); HIV 1/2 INDEX 0.17 S/CO (<1.00); Hep A IgM AB Non-Reactive (NonReactive); Hep A IgM S/CO 0.07 S/CO (0-0.79); Hep B Surf Ag Non-Reactive S/CO (NonReactive); Hep C IgG Ab Non-Reactive (NonReactive); Hepatitis B Core IgM Abs Non-Reactive (NonReactive)
[2020-01-24] MEDS: Nicotine 14 MG PATCH TD SCH (21:27)
[2020-01-24] MEDS: Atorvastatin Calcium 40 MG TAB PO SCH (21:28)
[2020-01-25] MEDS: NIFEdipine XL 60 MG TAB PO SCH (08:17)
[2020-01-25] MEDS: Hydrochlorothiazide 25 MG TAB PO SCH (08:18)
[2020-01-25] MEDS: Carvedilol 25 MG TAB PO SCH (08:18)
[2020-01-25] MEDS: Spironolactone 25 MG TAB PO SCH (08:19)
[2020-01-25] MEDS: Thiamine 100 MG TAB PO SCH (08:20)
[2020-01-25] MEDS: hydrALAZINE 25 MG TAB PO SCH (08:22)
[2020-01-25 11:34] VITALS: TEMP 98
--- NOTE | 2020-01-25 12:38 | PDOC.HOSPP ---
- Subjective Encounter Date: 01/25/20 Encounter Time: 09:20 Subjective: awake, no new complaints feels good - Objective Vital Signs & Weight: Vital Signs (12 hours) Temp Pulse Resp BP BP BP Pulse Ox 01/25/20 11:32 98 F 69 16 133/87 97 01/25/20 08:22 70 142/86 H 01/25/20 08:17 70 142/86 H 01/25/20 08:14 96 01/25/20 07:35 97.7 F 70 16 142/86 H 96 01/25/20 04:00 97.7 F 69 16 147/89 H 98 Weight Weight 184 lb 1.376 oz Most Recent Monitor Data Heart Rate from ECG 67 NIBP 175/101 NIBP BP-Mean 125 Respiration from ECG 14 SpO2 97 I&O: 01/24/20 01/25/20 01/26/20 06:59 06:59 06:59 Intake Total 1440 195 Output Total 1925 1025 200 Balance -485 -830 -200 Result Diagrams: 01/24/20 06:59 01/24/20 06:59 Hospitalist ROS - Medication Medications: Active Medications Generic Name Dose Route Start Last Admin Trade Name Freq PRN Reason Stop Dose Admin Acetaminophen 650 mg 01/23/20 03:59 01/24/20 08:45 Tylenol PO 650 mg Q4H PRN Administration Headache/Fever or Pain Atorvastatin Calcium 40 mg 01/22/20 21:00 01/24/20 21:28 Lipitor PO 40 mg HS STU Administration Carvedilol 25 mg 01/23/20 17:00 01/25/20 08:18 Coreg PO 25 mg BID-WM [facility] Administration Hydralazine HCl 100 mg 01/23/20 21:00 01/25/20 08:22 Apresoline PO 100 mg TID [facility] Administration Hydrochlorothiazide 25 mg 01/24/20 09:00 01/25/20 08:18 Hydrochlorothiazide PO 25 mg DAILY [facility] Administration Labetalol HCl 10 mg 01/22/20 10:52 01/24/20 01:38 Normodyne SLOW IVP 10 mg Q4H PRN Administration SBP GREATER THAN 160 Nicotine 14 mg 01/22/20 21:00 01/24/20 21:27 Nicoderm Patch TD 14 mg 2100 [facility] Administration Nifedipine 60 mg 01/24/20 09:00 01/25/20 08:17 Procardia Xl PO 60 mg DAILY [facility] Administration Pantoprazole Sodium 40 mg 01/23/20 09:00 01/25/20 08:20 Protonix PO 40 mg DAILY [facility] Administration Sodium Chloride 10 ml 01/21/20 23:33 01/21/20 23:57 Normal Saline Pf FS 10 ml PRN PRN Administration RECONSTITUTION Spironolactone 12.5 mg 01/24/20 08:00 01/25/20 08:19 Aldactone PO 12.5 mg QAM-WM STU Administration Thiamine HCl 150 mg 01/24/20 09:00 01/25/20 08:20 Thiamine PO 150 mg DAILY STU Administration - Exam General Appearance: awake alert Eye: PERRL, anicteric sclera ENT: no oropharyngeal lesions, moist mucosa Neck: supple, no JVD Heart: RRR, no murmur Respiratory: no wheezes, no rales Gastrointestinal: soft, non-tender, non-distended, normal bowel sounds Extremities: no cyanosis, no edema Neurological: cranial nerve grossly intact, no focal deficits Hosp A/P (1) Intracerebral bleed Code(s): I61.9 - NONTRAUMATIC INTRACEREBRAL HEMORRHAGE, UNSPECIFIED Status: Acute Qualifiers: Intracerebral hemorrhage etiology: nontraumatic Cerebral hemorrhage location: cerebral hemisphere, subcortical portion Laterality: left Qualified Code(s): I61.0 - Nontraumatic intracerebral hemorrhage in hemisphere, subcortical (2) Hypertensive emergency Code(s): I16.1 - HYPERTENSIVE EMERGENCY Status: Resolved (3) H/O: CVA (cerebrovascular accident) Code(s): Z86.73 - PRSNL HX OF TIA (TIA), AND CEREB INFRC W/O RESID DEFICITS Status: Chronic (4) CHF (congestive heart failure) Code(s): I50.9 - HEART FAILURE, UNSPECIFIED Status: Resolved Qualifiers: Heart failure type: systolic Heart failure chronicity: chronic Qualified Code(s): I50.22 - Chronic systolic (congestive) heart failure (5) Dyslipidemia Code(s): E78.5 - HYPERLIPIDEMIA, UNSPECIFIED Status: Chronic (6) h/o LV thrombus Status: Resolved (7) Afib Code(s): I48.91 - UNSPECIFIED ATRIAL FIBRILLATION Status: Suspected Qualifiers: Atrial fibrillation type: paroxysmal Qualified Code(s): I48.0 - Paroxysmal atrial fibrillation (8) Cardiomyopathy Code(s): I42.9 - CARDIOMYOPATHY, UNSPECIFIED Status: Suspected Qualifiers: Cardiomyopathy type: dilated Qualified Code(s): I42.0 - Dilated cardiomyopathy - Plan hypertensive emergency has resolved, htn is stable. has right hemiparesis with strength of around 5/5 in upper and 3-4/5 in lower h/o cva 7yrs back with left hemiplegia and no residual now has known h/o chf with ef of 15%, also was on coumadin for ?LV thrombus in 2018 per records from [facility], repeat echo in 01/2019 did not reveal thrombus prior ekg's from above facility shows afib, currently in sinus rhythm echo now shows normal ef with no LV thrombus. PT/OT eval he got vit k 10mg and kcentra to reverse coumadin in view of presenting symptoms on admission hemo/neurostable dc plan to rehab today continue coreg, hydralazine, lipitor, procadial xl, hctz. no anticoagulation needed due to pt being in sinus rhythm and current echo shows no lv thrombus with normal ef. HIV and hep panel are non-reactive, UDS is -ve
[2020-01-25 13:06] VITALS: BP 148/91
--- NOTE | 2020-01-25 17:21 | DIS ---
DATE OF ADMISSION: 01/21/2020 DATE OF DISCHARGE: 01/25/2020 DISCHARGE DISPOSITION: Inpatient rehab. PRIMARY DISCHARGE DIAGNOSES: Left basal ganglia bleed with right hemiparesis resolving, hypertensive emergency on arrival, at discharge is stable. SECONDARY DISCHARGE DIAGNOSES: Prior history of cerebrovascular accident with no residual paralysis; prior history of congestive heart failure, but normal ejection fraction on current hospitalization; history of left ventricular thrombus in the past, but no thrombus seen at present; dyslipidemia; prior history of paroxysmal atrial fibrillation, is in sinus rhythm; history of dilated cardiomyopathy resolved with current echo revealing normal ejection fraction. PROCEDURES DONE DURING HOSPITALIZATION: CT brain showed left basal ganglia bleed, which is stable. Echo with 2D Doppler showed ejection fraction of 55% to 60%, grade 1/3 diastolic dysfunction, mild concentric LVH. No LV thrombus was seen. Trabeculated apex cannot rule out noncompaction. Hemoglobin and hematocrit 15 and 46, platelet count 180, MCV is 86. Initial INR was 3.2. INR on the 14th is 1.2. BUN 16, creatinine 1.4. Troponin x2 negative. Urine drug screen negative. Acute hepatitis panel is nonreactive. HIV 1 and 2 nonreactive. INPATIENT CONSULT: 1. Dr. Berman for Cardiology. 2. Mr. Ronald Roberts/Dr. Hall for Neurosurgery. DISCHARGE MEDICATIONS: 1. Atorvastatin 40 mg p.o. at bedtime. 2. Coreg 25 mg twice daily. 3. Hydralazine 100 mg p.o. three times daily. 4. Hydrochlorothiazide 25 mg daily. 5. Procardia XL 60 mg p.o. daily. 6. Protonix 40 mg p.o. daily. 7. Spironolactone 12.5 mg p.o. daily. 8. Nicotine transdermal patch 14 mg daily, to use it for another 15 days and discontinue. 9. Thiamine 150 mg daily. ALLERGIES: ALLERGIC TO PENICILLIN. DISCHARGE PLAN: The patient to follow up with his primary care physician, Dr. Zaidi in 1 week after getting discharge from rehab. He needs to follow up with RASHAD Clemente in 2 to 3 weeks, Dr. Berman in 2 to 3 weeks for Cardiology. BRIEF COURSE DURING HOSPITALIZATION: The patient initially got admitted after he developed right-sided weakness. Initial CT brain done showed left basal ganglia bleed. The patient was on Coumadin for prior history of LV thrombus with ejection fraction of around 15%. He was diagnosed with LV thrombus in 2018 and was placed on Coumadin for the same. On arrival, the patient had hypertensive emergency and was admitted to ICU on Cardene drip. His hypertension was labile for the next 2 days and has been stabilized with current medications. Current echo with 2D Doppler done showed no evidence of LV thrombus and his ejection fraction was normal. The patient remained in normal sinus rhythm all through his stay here. On arrival, Mr. Solis also received vitamin K 10 mg IV and Kcentra to reverse his Coumadin in view of bleed in the brain. His INR is normal at the time of discharge. His right hemiparesis is resolving rapidly. He almost has a normal strength in the right upper extremity and around 3 to 4/5 in the right lower extremity. He is ambulating and participating with physical therapy. No anticoagulation will be given in view of the patient being in normal sinus rhythm and echo not revealing any LV thrombus and Mr. Solis is having normal ejection fraction as well. He has had findings of a trabeculated apex and outpatient cardiac PET scan/cardiac MRI will be done to rule out compaction. He will follow up with Dr. Berman in 3 to 4 weeks once the COVID-19 restrictions are lifted in the outpatient setting. He is otherwise hemodynamically and neurologically stable. A total of 35 minutes was spent on discharge plan. Please see a [id number] documentation for the day of discharge on [employer]. Job ID: [id number]
--- NOTE | 2020-01-25 18:00 | PDOC.CPN ---
- Subjective Date: 01/25/20 Time: 12:00 Interval history: No new issues. - Review of Systems General: denies: fever/chills, weight/appetite/sleep changes, night sweats, fatigue Respiratory: denies: cough, congestion, shortness of breath, exercise intolerance Cardiovascular: denies: chest pain, palpitation, edema, paroxysmal nocturnal dyspnea, orthopnea Gastrointestinal: denies: nausea, vomiting, diarrhea, constipation, abd pain, GI bleeding Musculoskeletal: denies: pain, tenderness, stiffness, swelling, arthritis/ arthralgias Neurological: denies: numbness, syncope, seizure, weakness - Objective Allergies/Adverse Reactions: Allergies Allergy/AdvReac Type Severity Reaction Status Date / Time Penicillins Allergy Intermediate Rash Verified 01/21/20 23:35 Vital Signs & Weight: Vital Signs Temp Pulse Pulse Resp BP BP BP 01/25/20 11:45 73 148/91 H 01/25/20 11:32 98 F 69 16 133/87 01/25/20 08:22 70 142/86 H 01/25/20 08:17 70 142/86 H 01/25/20 08:14 01/25/20 07:35 97.7 F 70 16 BP Pulse Ox 01/25/20 11:45 01/25/20 11:32 97 01/25/20 08:22 01/25/20 08:17 01/25/20 08:14 96 01/25/20 07:35 142/86 H 96 Weight 184 lb 1.376 oz - Medication Contraindications No Anticoagulant reason: Treatment not indicated - Physical Exam General: alert & oriented x3 HEENT: mucus membranes moist Neck: supple neck Cardiac: regular rate and rhythm Lungs: normal breath sounds Neuro: weakness Abdomen: active bowel sounds Extremities: no edema Skin: clear Musculoskeletal: no pain - Labs Result Diagrams: 01/24/20 06:59 01/24/20 06:59 Troponin/CKMB Troponin I 0.019 ng/mL (< 0.028) 01/22/20 01:02 - Telemetry Sinus rhythms and dysrhythmias: sinus rhythm - Assessment/Plan Assessment/Plan: 1. Hemorrhagic CVA 2. Uncontrolled HTN 3. HTN emergency 4. Non ischemic CM resolved EF at 55-60% 5. Chronic warfarin use due to Hx of LV thrombus. Resolved on echo dine 2 days ago. 6. Possible non compaction PLAN: - No longer an indication for warfarin as he no longer has an LV thrombus and LV function is normal. - May need a cardiac MRI as an outpatient to evaluate for non compaction. - BP much better controlled with current regimen. - May transfer to rehab at any time from cardiac perspective. - Will sign off. Please call with any questions.
--- NOTE | 2020-01-27 08:33 | PQF ---
GIRMA TANNER JR, VINAYA KUMAR MD [id number] [address] [place] [address] [id number] CLINICAL DOCUMENTATION CLARIFICATION FORM: POST DISCHARGE Addendum to original discharge summary date: ____ Late entry note date: __ DATE: 01/27/2020 ATTN: Quinn Hayden Please exercise your independent, professional judgment in responding to the clarification form. Clinical indicators are provided on the bottom of this form for your review Please check appropriate box(s): [ x ] Encephalopathy: Etiology: [x ] Hypertensive [ ] Metabolic [ ] Toxic [ ] Drug induced: [ ] Unspecified [ x ] Other (please specify)__intracranial bleed____ [ ] Transient Alteration of Awareness [ ] Other diagnosis [ ] Unable to determine In addition, please specify: Present on Admission (POA): [ ] Yes [ ] No [ ] Unable to determine For continuity of documentation, please document condition throughout progress notes and discharge summary. Thank You. CLINICAL INDICATORS - SIGNS / SYMPTOMS / LABS ED Notes 01/20 "patient presents for evaluation of confusion" HP 01/20 "generalized weakness" ED Notes 01/20 "GCS 15 NIH 2" HP 01/20 "BP in the ER with 213/145" RISK FACTORS HP 01/20-HTN emergency HP 01/20-CHF HP 01/20-Acute basal ganglia CVA 01/20-CKD TREATMENTS: Collected 01/21-Brain CT DEC 12-Nicardipine 25mg IV DEC 12-Coreg 12.5 mg Oral DEC 12-Catapres 0.1mg Oral (This form is maintained as a part of the permanent medical record) 2014 [employer]. All Rights Reserved [email or web address] [phone] LONI
--- NOTE | 2020-01-27 08:37 | PQF ---
GIRMA TANNER JR, VINAYA KUMAR MD [id number] [address] [place] [address] [id number] CLINICAL DOCUMENTATION CLARIFICATION FORM: POST DISCHARGE Addendum to original discharge summary date: ____ Late entry note date: __ DATE: 01/27/2020 ATTN: Quinn Hayden Please exercise your independent, professional judgment in responding to the clarification form. Clinical indicators are provided on the bottom of this form for your review Please check appropriate box(s) to clarify if the following diagnosis has been ruled in or ruled out: CEREBRAL EDEMA [ ] Ruled in diagnosis [ ] Continue to treat [ ] Resolved [x ] Ruled out diagnosis [ ] Cannot rule out diagnosis [ ] Other diagnosis [ ] Unable to determine In addition, please specify: Present on Admission (POA): [ ] Yes [ ] No [ ] Unable to determine For continuity of documentation, please document condition throughout progress notes and discharge summary. Thank You. CLINICAL INDICATORS - SIGNS / SYMPTOMS / LABS Consult 01/21 " 1 cm in size basal ganglia hemorrhage likely related to early signs of edema" ED Notes 01/20 "patient presents for evaluation of confusion" HP 01/20 "generalized weakness" ED Notes 01/20 "GCS 15 NIH 2" HP 01/20 "BP in the ER with 213/145" RISK FACTORS HP 01/20-HTN emergency HP 01/20-CHF HP 01/20-Acute basal ganglia CVA HP 01/20-CKD Consult 01/22-Cardiomyopathy TREATMENTS Collected 01/21-Brain CT DEC 12-Nicardipine 25mg IV DEC 12-Coreg 12.5 mg Oral DEC 12-Catapres 0.1mg Oral (This form is maintained as a part of the permanent medical record) 2014 [employer]. All Rights Reserved [email or web address] [phone] [email or web address]
== END 2020-01-25 13:28 | DRG 65 ==
LOC: ERS 21:08 → CCU 21:48 → 2SE 01-22 15:05
PROVIDERS: ADMIT Internal Medicine; ATTEND Internal Medicine
PROC: 3E0234Z Introduction of Serum, Toxoid and Vaccine into Muscle, Percutaneous Approach (ICD-10-PCS; principal; 2020-01-22)
DX: I61.0 Nontraumatic intracerebral hemorrhage in hemisphere, subcortical (principal); I13.0 Hypertensive heart and chronic kidney disease with heart failure and stage 1 through stage 4 chronic kidney disease, or unspecified chronic kidney disease; I16.1 Hypertensive emergency; D68.32 Hemorrhagic disorder due to extrinsic circulating anticoagulants; I50.22 Chronic systolic (congestive) heart failure; G81.91 Hemiplegia, unspecified affecting right dominant side; I42.8 Other cardiomyopathies; I42.0 Dilated cardiomyopathy; I67.4 Hypertensive encephalopathy; G93.49 Other encephalopathy; Z23 Encounter for immunization; F17.290 Nicotine dependence, other tobacco product, uncomplicated; R40.2362 Coma scale, best motor response, obeys commands, at arrival to emergency department; R40.2142 Coma scale, eyes open, spontaneous, at arrival to emergency department; R40.2252 Coma scale, best verbal response, oriented, at arrival to emergency department; R29.702 NIHSS score 2; N18.9 Chronic kidney disease, unspecified; T45.515A Adverse effect of anticoagulants, initial encounter; R73.9 Hyperglycemia, unspecified; D72.819 Decreased white blood cell count, unspecified; I48.0 Paroxysmal atrial fibrillation; Z88.0 Allergy status to penicillin; Z79.01 Long term (current) use of anticoagulants; Z79.899 Other long term (current) drug therapy; Z87.01 Personal history of pneumonia (recurrent)
CPT/HCPCS: 36415; 70450; 71045; 80048; 80074; 80306; 84484; 85025; 85027; 85610; 85730; 87389; 93306; 96365; C9113; C9132; J7050

== ENCOUNTER 2022-06-05 13:59 | Inpatient (IN) | payer OTHER, MEDICARE ==
[2022-06-05] MEDS ORDERED: Morphine 4 MG/ML VIAL ONE (15:06)
[2022-06-05] MEDS ORDERED: Ondansetron PF 4 MG/2 ML Vial ONE (15:06)
[2022-06-05] MEDS ORDERED: Iopamidol-370 76% 500 ML 1 ML ONE (15:14)
[2022-06-05 15:23] LABS: #Monocytes 0.6 thou/uL (0.11-0.59); #Neutrophils 8.1 thou/uL (1.40-6.50); %Basophils 0.1 % (0.0-1.0); %Eosinophils 0.4 % (0.0-10.0); %Lymphocytes 10.3 % (21.0-51.0); %Monocytes 6.1 % (0.0-10.0); Hemoglobin 11.8 g/dL (14.0-18.0); Mean Corpuscular HGB CONC 32.2 g/dL (32.0-36.0); Mean Corpuscular Hemoglobin 31.5 pg (27.0-31.0); Mean Corpuscular Volume 97.5 fL (78.0-98.0); Mean Platelet Volume 8.3 fL (7.4-10.4); Platelet Count 361 thou/uL (130-400); RBC Distribution Width 14.7 % (11.5-14.5); Red Blood Cell (RBC) Count 3.75 mill/uL (4.70-6.10); White Blood Cell (WBC) Count 9.7 thou/uL (4.8-10.8)
[2022-06-05] MEDS ORDERED: Nicotine 14 MG PATCH ONE (15:26)
[2022-06-05 15:34] LABS: Amphetamine Not Detected (NotDetected); Barbiturates Screen Not Detected (NotDetected); Benzodiazepine Screen Not Detected (NotDetected); Cocaine Metabolite Screen Not Detected (NotDetected); Methadone Not Detected (NotDetected); Methamphetamine Not Detected (NotDetected); Opiate Screen Not Detected (NotDetected); Oxycodone Screen Not Detected (NotDetected); Phencyclidine (PCP) Not Detected (NotDetected); THC/Cannabinoid Screen Not Detected (NotDetected); Tricyclic Screen Not Detected (NotDetected)
[2022-06-05 15:35] LABS: Bilirubin 1+ (Negative); Blood, Urine Negative (Negative); Clarity Clear (Clear); Glucose, Urine (Dipstick) Normal (Negative); Ketone, Urine 20 mg/dL (Negative); Leukocyte Negative Leu/uL (Negative); Nitrite Negative (Negative); Protein, Urine (Dipstick) 50 mg/dL (Neg-Trace); RBC/HPF 0-3 HPF (0-3); Specific Gravity, Urine 1.018 (1.002-1.036); Squamous Epithelial 0-3 HPF (0-3); WBC/HPF 0-3 HPF (0-3); pH, Urine 5.5 (5.0-9.0)
[2022-06-05 15:36] LABS: Bacteria/HPF 1+ HPF (None Seen)
[2022-06-05 15:45] LABS: ALT (SGPT) Less than 7 U/L (8-55); AST (SGOT) 19 U/L (5-34); Alkaline Phosphatase 192 U/L (40-110); Anion Gap 25 mmol/L (10-20); BUN (Urea Nitrogen) 21 mg/dL (8.4-25.7); Bilirubin, Total 0.3 mg/dL (0.2-1.2); CK (CPK) 15 U/L (30-200); Calc. Creatinine Clearance 0 mL/min (70-130); Calcium 10.3 mg/dL (7.8-10.44); Carbon Dioxide 16 mmol/L (22-29); Chloride 96 mmol/L (98-107); Estimated GFR 45; Globulin 4.5 g/dL (2.4-3.5); Glucose 67 mg/dL (70-105); Magnesium 1.4 mg/dL (1.6-2.6); Potassium 5.3 mmol/L (3.5-5.1); Protein, Total 8.5 g/dL (6.0-8.3); Sodium 132 mmol/L (136-145)
[2022-06-05 15:51] LABS: Acetaminophen Less than 10.0 mcg/mL (10.0-30.0); Alcohol Less than 10 mg/dL (Less than 10); Salicylate Less than 8.0 mg/dL (15.0-30.0)
[2022-06-05 15:58] LABS: Lipase 1232 U/L (8-78)
[2022-06-05] MEDS ORDERED: Magnesium 2 GM/50 ML BAG (IN WATER) ONE (16:46)
[2022-06-05] MEDS ORDERED: Lorazepam 2 MG/ML VIAL IM SCH (20:16)
[2022-06-05] MEDS ORDERED: Lorazepam 1 MG TAB PO PRN (20:16)
[2022-06-05] MEDS ORDERED: Ondansetron PF 4 MG/2 ML Vial IVP PRN (20:16)
[2022-06-05] MEDS ORDERED: Ondansetron ODT 4 MG TAB PO PRN (20:16)
[2022-06-05] MEDS ORDERED: hydrALAZINE 20 MG/ML VIAL SLOW IVP PRN (20:22)
[2022-06-05] MEDS ORDERED: Electrolyte Replacement Protocol 1 EACH FS SCH (20:30)
[2022-06-05] MEDS ORDERED: cloNIDine 0.2mg/24 Hour PATCH TD SCH (21:00)
[2022-06-05] MEDS: Nicotine 21 MG PATCH TD SCH (22:27)
[2022-06-05] MEDS ORDERED: Lorazepam (BATCHED) 2 MG/ML SYR IM SCH (22:45)
[2022-06-05] MEDS: Morphine 4 MG/ML VIAL SLOW IVP PRN (23:00)
[2022-06-05] MEDS: Famotidine/PF 20 mg/2ml Vial SLOW IVP SCH ×2 (23:01→23:28)
[2022-06-05] MEDS: Meropenem 1 GM in Sodium Chloride 0.9% 100 ML IVPB SCH (23:01)
[2022-06-05] MEDS: Thiamine HCl 200 MG/2 ML VIAL SLOW IVP SCH (23:01)
[2022-06-05] MEDS: Sodium Bicarbonate 150 MEQ in Dextrose 5% in Water 1,000 ML IV SCH (23:01)
[2022-06-05 23:42] LABS: ALT (SGPT) Less than 7 U/L (8-55); AST (SGOT) 15 U/L (5-34); Albumin 3.4 g/dL (3.5-5.0); Alkaline Phosphatase 159 U/L (40-110); Anion Gap 22 mmol/L (10-20); BUN (Urea Nitrogen) 19 mg/dL (8.4-25.7); Bilirubin, Total 0.3 mg/dL (0.2-1.2); Calc. Creatinine Clearance 0 mL/min (70-130); Calcium 9.4 mg/dL (7.8-10.44); Carbon Dioxide 14 mmol/L (22-29); Chloride 101 mmol/L (98-107); Estimated GFR 54; Glucose 78 mg/dL (70-105); Potassium 5.1 mmol/L (3.5-5.1); Protein, Total 7.4 g/dL (6.0-8.3); Sodium 132 mmol/L (136-145)
[2022-06-06] MEDS: Lorazepam 1 MG TAB PO SCH ×4 (06:41→20:58)
[2022-06-06] MEDS: Meropenem 1 GM in Sodium Chloride 0.9% 100 ML IVPB SCH ×2 (07:37→18:56)
[2022-06-06 07:51] VITALS: BMI 20.5
[2022-06-06] MEDS: Multivit, Therapeutic 1 TAB PO SCH (08:50)
[2022-06-06] MEDS: Folic Acid 1 MG TAB PO SCH (08:50)
[2022-06-06] MEDS: Sodium Bicarbonate 150 MEQ in Dextrose 5% in Water 1,000 ML IV SCH ×2 (08:50→21:19)
[2022-06-06] MEDS: Enoxaparin Sodium 30 MG/0.3 ML SYRINGE SC SCH (08:50)
[2022-06-06] MEDS: Famotidine/PF 20 mg/2ml Vial SLOW IVP SCH (08:50)
[2022-06-06] MEDS: Morphine 4 MG/ML VIAL SLOW IVP PRN ×2 (08:53→21:27)
[2022-06-06] MEDS ORDERED: Pantoprazole 40 MG VIAL IVP SCH (10:45)
[2022-06-06 10:46] LABS: Albumin 3.1 g/dL (3.5-5.0)
[2022-06-06 10:47] LABS: Calcium 9.3 mg/dL (7.8-10.44); Chloride 103 mmol/L (98-107); Sodium 134 mmol/L (136-145)
[2022-06-06 10:48] LABS: Glucose 113 mg/dL (70-105); Triglycerides 98 mg/dL (Less than 150)
[2022-06-06 10:49] LABS: Globulin 3.7 g/dL (2.4-3.5); Protein, Total 6.8 g/dL (6.0-8.3)
[2022-06-06 10:50] LABS: Anion Gap 22 mmol/L (10-20); Bilirubin, Total 0.3 mg/dL (0.2-1.2); Carbon Dioxide 14 mmol/L (22-29)
[2022-06-06 10:51] LABS: Alkaline Phosphatase 141 U/L (40-110)
[2022-06-06 10:52] LABS: Calc. Creatinine Clearance 51 mL/min (70-130); Estimated GFR 67
[2022-06-06 10:53] LABS: AST (SGOT) 14 U/L (5-34); BUN (Urea Nitrogen) 16 mg/dL (8.4-25.7); Cholesterol 112 mg/dl (< 200 Desired); Phosphorus 2.9 mg/dL (2.3-4.7)
[2022-06-06 10:54] LABS: ALT (SGPT) Less than 7 U/L (8-55); Cardiac Risk 2.3 (Less than 4.5); HDL Cholesterol 49 mg/dL (>60 Neg Risk); LDL Cholesterol, Calculated 43 mg/dL; Magnesium 1.7 mg/dL (1.6-2.6)
[2022-06-06 10:55] LABS: Lipase 689 U/L (8-78)
[2022-06-06] MEDS ORDERED: Lorazepam 1 MG TAB PO PRN (20:16)
[2022-06-06] MEDS ORDERED: Magnesium 2 GM/50 ML(in water) 2 GM in Premix Bag 1 BAG IVPB SCH (21:15)
[2022-06-06] MEDS: Thiamine HCl 200 MG/2 ML VIAL SLOW IVP SCH (21:15)
[2022-06-06] MEDS: Nicotine 21 MG PATCH TD SCH (21:17)
[2022-06-07] MEDS: Lorazepam 1 MG TAB PO SCH ×3 (02:20→16:48)
[2022-06-07] MEDS: Meropenem 1 GM in Sodium Chloride 0.9% 100 ML IVPB SCH ×2 (07:36→17:59)
[2022-06-07 08:15] LABS: Phosphorus 1.6 mg/dL (2.3-4.7)
[2022-06-07 08:16] LABS: ALT (SGPT) Less than 7 U/L (8-55); AST (SGOT) 13 U/L (5-34); Albumin 3.3 g/dL (3.5-5.0); Alkaline Phosphatase 156 U/L (40-110); Anion Gap 17 mmol/L (10-20); BUN (Urea Nitrogen) 12 mg/dL (8.4-25.7); Bilirubin, Total 0.3 mg/dL (0.2-1.2); Calc. Creatinine Clearance 47 mL/min (70-130); Calcium 9.4 mg/dL (7.8-10.44); Carbon Dioxide 28 mmol/L (22-29); Chloride 93 mmol/L (98-107); Estimated GFR 60; Globulin 3.7 g/dL (2.4-3.5); Glucose 136 mg/dL (70-105); Potassium 3.9 mmol/L (3.5-5.1); Sodium 134 mmol/L (136-145)
[2022-06-07 08:31] LABS: Lipase 1249 U/L (8-78)
[2022-06-07] MEDS: Enoxaparin Sodium 30 MG/0.3 ML SYRINGE SC SCH (09:23)
[2022-06-07] MEDS: Multivit, Therapeutic 1 TAB PO SCH (09:24)
[2022-06-07] MEDS: Folic Acid 1 MG TAB PO SCH (09:25)
[2022-06-07] MEDS: Pantoprazole 40 MG VIAL IVP SCH (09:26)
[2022-06-07] MEDS ORDERED: Potassium Phosphate 30 MMOL in Sodium Chloride 0.9% 500 ML IVPB SCH (09:30)
[2022-06-07] MEDS ORDERED: Dextrose 5 %-0.45 % NaCl 1,000 ML IV SCH (10:15)
[2022-06-07] MEDS: Sodium Bicarbonate 150 MEQ in Dextrose 5% in Water 1,000 ML IV SCH (10:57)
[2022-06-07] MEDS: Morphine 4 MG/ML VIAL SLOW IVP PRN ×2 (11:36→20:53)
[2022-06-07] MEDS: Sodium Bicarbonate 50 MEQ in Sodium Chloride 0.45% 1,000 ML IV SCH (11:38)
[2022-06-07] MEDS ORDERED: Lorazepam 1 MG TAB PO PRN (20:16)
[2022-06-07] MEDS: Thiamine HCl 200 MG/2 ML VIAL SLOW IVP SCH (20:35)
[2022-06-07] MEDS: Nicotine 21 MG PATCH TD SCH (20:57)
[2022-06-07] MEDS: Lorazepam 0.5 MG TAB PO SCH (20:57)
[2022-06-08] MEDS: Sodium Bicarbonate 50 MEQ in Sodium Chloride 0.45% 1,000 ML IV SCH (00:32)
[2022-06-08] MEDS: Lorazepam 0.5 MG TAB PO SCH ×3 (03:22→15:34)
[2022-06-08 04:52] LABS: Hemoglobin 8.4 g/dL (14.0-18.0); Mean Corpuscular HGB CONC 33.2 g/dL (32.0-36.0); Mean Corpuscular Hemoglobin 32.1 pg (27.0-31.0); Mean Corpuscular Volume 96.8 fL (78.0-98.0); Mean Platelet Volume 7.6 fL (7.4-10.4); Platelet Count 275 thou/uL (130-400); RBC Distribution Width 14.4 % (11.5-14.5); Red Blood Cell (RBC) Count 2.62 mill/uL (4.70-6.10); White Blood Cell (WBC) Count 5.7 thou/uL (4.8-10.8)
[2022-06-08 05:33] LABS: ALT (SGPT) 7 U/L (8-55); AST (SGOT) 19 U/L (5-34); Albumin 2.7 g/dL (3.5-5.0); Alkaline Phosphatase 139 U/L (40-110); Anion Gap 14 mmol/L (10-20); BUN (Urea Nitrogen) 10 mg/dL (8.4-25.7); BUN/Creatinine Ratio 8.33; Bilirubin, Total 0.2 mg/dL (0.2-1.2); Calc. Creatinine Clearance 53 mL/min (70-130); Calcium 8.3 mg/dL (7.8-10.44); Carbon Dioxide 29 mmol/L (22-29); Chloride 97 mmol/L (98-107); Estimated GFR 70; Globulin 2.9 g/dL (2.4-3.5); Glucose 110 mg/dL (70-105); Lipase 911 U/L (8-78); Magnesium 1.6 mg/dL (1.6-2.6); Phosphorus 2.8 mg/dL (2.3-4.7); Potassium 4.1 mmol/L (3.5-5.1); Protein, Total 5.6 g/dL (6.0-8.3); Sodium 136 mmol/L (136-145)
[2022-06-08] MEDS: Meropenem 1 GM in Sodium Chloride 0.9% 100 ML IVPB SCH ×3 (06:19→22:12)
[2022-06-08] MEDS ORDERED: Magnesium 2 GM/50 ML(in water) 2 GM in Premix Bag 1 BAG IVPB SCH (09:00)
[2022-06-08] MEDS: Folic Acid 1 MG TAB PO SCH (09:48)
[2022-06-08] MEDS: Multivit, Therapeutic 1 TAB PO SCH (09:48)
[2022-06-08] MEDS: Pantoprazole 40 MG VIAL IVP SCH (09:49)
[2022-06-08] MEDS: Lidocaine 5% Patch TD SCH (09:52)
[2022-06-08] MEDS: Morphine 4 MG/ML VIAL SLOW IVP PRN (12:57)
[2022-06-08] MEDS: Acetaminophen/Codeine 30-300mg Tablet PO PRN (19:21)
[2022-06-08] MEDS ORDERED: Lorazepam 0.5 MG TAB PO PRN (20:16)
[2022-06-08] MEDS: Nicotine 21 MG PATCH TD SCH (21:52)
[2022-06-08] MEDS: Thiamine 100 MG TAB PO SCH (21:52)
[2022-06-08] MEDS: Transdermal Patch Removal TOP SCH (22:19)
[2022-06-09] MEDS: Meropenem 1 GM in Sodium Chloride 0.9% 100 ML IVPB SCH ×3 (05:13→20:53)
[2022-06-09] MEDS: Acetaminophen/Codeine 30-300mg Tablet PO PRN ×4 (05:20→19:56)
[2022-06-09] MEDS: Multivit, Therapeutic 1 TAB PO SCH (08:24)
[2022-06-09] MEDS: Folic Acid 1 MG TAB PO SCH (08:24)
[2022-06-09] MEDS: Lidocaine 5% Patch TD SCH (08:25)
[2022-06-09] MEDS: Pantoprazole 40 MG VIAL IVP SCH (08:38)
[2022-06-09] MEDS ORDERED: Carvedilol 6.25 MG TAB PO SCH (10:00)
[2022-06-09] MEDS: Amlodipine 5 MG TAB PO SCH (10:13)
[2022-06-09 11:11] LABS: #Basophils 0.1 thou/uL (0.0-0.2); #Eosinphils 0.1 thou/uL (0.0-0.7); #Lymphocytes 1.3 thou/uL (1.20-3.40); #Monocytes 0.4 thou/uL (0.11-0.59); #Neutrophils 4.2 thou/uL (1.40-6.50); %Basophils 1.1 % (0.0-1.0); %Monocytes 6.7 % (0.0-10.0); %Neutrophils 69.2 % (42.0-75.0); Mean Corpuscular HGB CONC 32.1 g/dL (32.0-36.0); Mean Corpuscular Hemoglobin 31.5 pg (27.0-31.0); Mean Corpuscular Volume 98.2 fL (78.0-98.0); Mean Platelet Volume 7.3 fL (7.4-10.4); Platelet Count 303 thou/uL (130-400); RBC Distribution Width 14.5 % (11.5-14.5); Red Blood Cell (RBC) Count 2.84 mill/uL (4.70-6.10)
[2022-06-09 11:18] LABS: Albumin 2.7 g/dL (3.5-5.0); Anion Gap 14 mmol/L (10-20); BUN (Urea Nitrogen) 9 mg/dL (8.4-25.7); BUN/Creatinine Ratio 7.96; Calc. Creatinine Clearance 56 mL/min (70-130); Calcium 8.6 mg/dL (7.8-10.44); Carbon Dioxide 30 mmol/L (22-29); Chloride 100 mmol/L (98-107); Estimated GFR 75; Glucose 124 mg/dL (70-105); Potassium 4.3 mmol/L (3.5-5.1); Sodium 140 mmol/L (136-145)
[2022-06-09] MEDS: Carvedilol 6.25 MG TAB PO SCH (16:41)
[2022-06-09] MEDS: Nicotine 21 MG PATCH TD SCH (19:57)
[2022-06-09] MEDS: Thiamine 100 MG TAB PO SCH (19:57)
[2022-06-09] MEDS: Transdermal Patch Removal TOP SCH (20:53)
[2022-06-10] MEDS: Meropenem 1 GM in Sodium Chloride 0.9% 100 ML IVPB SCH ×4 (05:48→14:56)
[2022-06-10] MEDS: Acetaminophen/Codeine 30-300mg Tablet PO PRN ×2 (09:09→15:09)
[2022-06-10] MEDS: Amlodipine 5 MG TAB PO SCH (09:10)
[2022-06-10] MEDS: Carvedilol 6.25 MG TAB PO SCH ×2 (09:10→17:52)
[2022-06-10] MEDS: Folic Acid 1 MG TAB PO SCH (09:11)
[2022-06-10] MEDS: Multivit, Therapeutic 1 TAB PO SCH (09:11)
[2022-06-10] MEDS: Lidocaine 5% Patch TD SCH (09:40)
[2022-06-10] MEDS: Thiamine 100 MG TAB PO SCH (20:14)
[2022-06-10] MEDS: Nicotine 21 MG PATCH TD SCH (20:15)
[2022-06-10] MEDS: traMADol HCl 50 MG TAB PO PRN (20:15)
[2022-06-10] MEDS: Transdermal Patch Removal TOP SCH (22:03)
[2022-06-11] MEDS: Acetaminophen/Codeine 30-300mg Tablet PO PRN ×2 (04:20→16:20)
[2022-06-11] MEDS: traMADol HCl 50 MG TAB PO PRN (06:21)
[2022-06-11] MEDS: Folic Acid 1 MG TAB PO SCH (09:12)
[2022-06-11] MEDS: Lidocaine 5% Patch TD SCH ×3 (09:12→16:21)
[2022-06-11] MEDS: Multivit, Therapeutic 1 TAB PO SCH (09:12)
[2022-06-11] MEDS: Carvedilol 6.25 MG TAB PO SCH ×2 (09:12→16:21)
[2022-06-11] MEDS: Amlodipine 5 MG TAB PO SCH (09:13)
[2022-06-11] MEDS: Nicotine 21 MG PATCH TD SCH (20:32)
[2022-06-11] MEDS: Thiamine 100 MG TAB PO SCH (20:32)
[2022-06-11] MEDS: Transdermal Patch Removal TOP SCH (20:34)
[2022-06-12] MEDS: Acetaminophen/Codeine 30-300mg Tablet PO PRN ×2 (04:59→11:47)
[2022-06-12] MEDS: Folic Acid 1 MG TAB PO SCH ×2 (08:47→10:55)
[2022-06-12] MEDS: Carvedilol 6.25 MG TAB PO SCH ×2 (08:47→08:53)
[2022-06-12] MEDS: Multivit, Therapeutic 1 TAB PO SCH ×2 (08:47→10:55)
[2022-06-12] MEDS: Amlodipine 5 MG TAB PO SCH ×2 (08:47→10:55)
[2022-06-12 08:48] VITALS: TEMP 97.7
[2022-06-12 08:53] VITALS: BP 126/86
[2022-06-12] MEDS ORDERED: Ibuprofen 600 MG TAB PO PRN (09:55)
[2022-06-12] MEDS: Lidocaine 5% Patch TD SCH (10:50)
== END 2022-06-12 12:46 | disposition swing bed (61) | DRG 439 ==
LOC: ERS 13:59 → ERHOLD 18:06 → 2NO 22:14 → MSONC 06-10 18:46
PROVIDERS: ADMIT Internal Medicine; ATTEND Internal Medicine
PROC: HZ2ZZZZ Detoxification Services for Substance Abuse Treatment (ICD-10-PCS; principal; 2022-06-05)
DX: K85.21 Alcohol induced acute pancreatitis with uninfected necrosis (principal); E44.0 Moderate protein-calorie malnutrition; E87.1 Hypo-osmolality and hyponatremia; I42.6 Alcoholic cardiomyopathy; K86.3 Pseudocyst of pancreas; E87.2 Acidosis; N17.9 Acute kidney failure, unspecified; F10.239 Alcohol dependence with withdrawal, unspecified; I47.1 Supraventricular tachycardia; I50.22 Chronic systolic (congestive) heart failure; I42.0 Dilated cardiomyopathy; Z20.822 Contact with and (suspected) exposure to COVID-19; R29.6 Repeated falls; F17.210 Nicotine dependence, cigarettes, uncomplicated; E83.42 Hypomagnesemia; E87.5 Hyperkalemia; I16.0 Hypertensive urgency; K86.1 Other chronic pancreatitis; E86.9 Volume depletion, unspecified; R94.31 Abnormal electrocardiogram [ECG] [EKG]; I11.0 Hypertensive heart disease with heart failure; I48.0 Paroxysmal atrial fibrillation; M54.50 Low back pain, unspecified; Z28.21 Immunization not carried out because of patient refusal; Z88.0 Allergy status to penicillin; Z91.81 History of falling; Z79.899 Other long term (current) drug therapy; Z79.82 Long term (current) use of aspirin; Z68.20 Body mass index [BMI] 20.0-20.9, adult
CPT/HCPCS: 36415; 71045; 72100; 72148; 74177; 80053; 80061; 80069; 80306; 80307; 81003; 81015; 82550; 83605; 83690; 83735; 83880; 84100; 84484; 85025; 85027; 87040; 87086; 93005; 93010; 93306; 96361; 96365; 96374; 96375; C9113; J1642; J1650; J2060; J2185; J2270; J2405; J3411; J3475; J3490; J7030; J7070; Q9967; S0028; U0003; U0005